=== PATIENT | male | born 1945 | race Two or more races ===

== ENCOUNTER 2018-04-09 12:54 | Emergency (ER) | payer MEDICARE, OTHER ==
[2018-04-09] MEDS ORDERED: NITROGLYCERIN/D5W 50 MG/250 ML RTUINJ IV ONE (13:17)
[2018-04-09] MEDS ORDERED: ONDANSETRON 4 MG TAB.RAPDIS ONE ×2 (13:22→13:43)
[2018-04-09] MEDS ORDERED: ENOXAPARIN SODIUM INJ 100 MG/1 ML DISP.SYRIN SUBCUT ONE (13:25)
[2018-04-09] MEDS ORDERED: TICAGRELOR 90 MG TABLET PO ONE (13:25)
[2018-04-09] MEDS ORDERED: NITROGLYCERIN/D5W 50 MG/250 ML RTUINJ IV PRN (13:26)
--- NOTE | 2018-04-09 13:33 | ER Document Report ---
ED Cardiac - General Chief Complaint: Chest Pain Stated Complaint: CHEST PAIN Time Seen by Provider: 04/09/18 13:23 Mode of Arrival: Ambulatory Information source: Patient Notes: This is a 73-year-old man with a history of gout who presents to the emergency room with left-sided nonradiating chest pain and diaphoresis for 1 hour. Currently, the patient's pain is 5 out of 10. Patient denies any recent bleeding. He denies any abdominal pain. He denies any significant shortness of breath. He states he did have some chest pain 2 days ago but it resolved spontaneously. TRAVEL OUTSIDE OF THE [place] IN LAST 30 DAYS: No - HPI Patient complains to provider of: Chest pain Use of: denies: Alcohol, Amphetamines, Bath salts, Caffeine, Cocaine, Decongestants, Other Is the pain a: New problem Chest pain location: Substernal Quality of pain: Constant, Dull Chest pain radiation location: denies: Left jaw, Left arm, Left shoulder, Right jaw, Right arm, Right shoulder, Back, Neck, None Severity now: Moderate Severity at worst: Severe Pain level currently: 4 Chest pain precipitating factors: At Rest Cardiac risk factors: None Positive cardiac history: No Associated symptoms: Other - Diaphoresis Exacerbated by: Emotional stress Relieved by: Nothing Similar symptoms previously: No Recently seen / treated by doctor: No - Related Data Allergies/Adverse Reactions: No Known Allergies Allergy (Unverified 04/09/18 16:12) Past Medical History - General Information source: Patient - Social History Smoking Status: Never Smoker Cigarette use (# per day): No Chew tobacco use (# tins/day): No Frequency of alcohol use: None Drug Abuse: None Lives with: Spouse/Significant other Family History: None Patient has suicidal ideation: No Patient has homicidal ideation: No - Past Medical History Cardiac Medical History: Reports: None Pulmonary Medical History: Reports: None EENT Medical History: Reports: None Neurological Medical History: Reports: None Endocrine Medical History: Reports: None Renal/ Medical History: Reports: None Malignancy Medical History: Reports None GI Medical History: Reports: None Musculoskeltal Medical History: Reports Hx Gout Skin Medical History: Reports None Psychiatric Medical History: Reports: None Traumatic Medical History: Reports: None Infectious Medical History: Reports: None Surgical Hx: Negative Review of Systems - Review of Systems Constitutional: denies: Chills, Fever EENT: No symptoms reported Cardiovascular: See HPI Respiratory: No symptoms reported Gastrointestinal: No symptoms reported Genitourinary: No symptoms reported Male Genitourinary: No symptoms reported Musculoskeletal: No symptoms reported Skin: No symptoms reported Hematologic/Lymphatic: No symptoms reported Neurological/Psychological: No symptoms reported Physical Exam - Vital signs Vitals: Pulse Resp BP Pulse Ox 112 H 18 83/63 L 99 04/09/18 12:55 04/09/18 12:55 04/09/18 12:55 04/09/18 12:55 Notes: Physical exam: GENERAL: Diaphoretic, pale appearing male complaining of 5/10 chest pain HEAD: Atraumatic, normocephalic. EYES: Pupils equal round and reactive to light, extraocular movements intact, sclera anicteric, conjunctiva are normal. ENT: TMs normal, nares patent, oropharynx clear without exudates. Moist mucous membranes. NECK: Normal range of motion, supple without obvious mass or JVD. LUNGS: Breath sounds clear to auscultation bilaterally and equal. No wheezes rales or rhonchi. HEART: Regular rate and rhythm without murmurs, rubs or gallops. ABDOMEN: Soft, normoactive bowel sounds. No tenderness to palpation. No guarding, no rebound. No masses appreciated. EXTREMITIES: Normal range of motion, no pitting or edema. No clubbing or cyanosis. NEUROLOGICAL: Cranial nerves II through XII grossly intact. Normal speech, moving all extremities. PSYCH: Normal mood, normal affect. SKIN: Warm, Dry, normal turgor, no rashes or lesions noted. Course - Re-evaluation Re-evalutation: 04/09/18 13:31 Patient took 81 mg of aspirin this morning. He was given 381 mg of aspirin in the ER. Patient was given Lovenox 30 mg IV, followed by 100 mg subcu is part of protocol. Patient was given Plavix. Discussed JANETH Day with patient and asked me to speak to the government contracts manager at [facility] (they are already environmental projects advisor). Discussed case with Dr. Porter who is a government contracts manager at [facility] is willing to take the patient. He recommended adding Brilinta at 160 mg, and transfer the patient and to hold on T and K. Helicopter is already on the way and is said to be here in 10 minutes. Patient is receiving IV nitroglycerin (low dose) for his chest pain as well as IV fluids. Given EKG, RCA is likely so will watch his blood pressure closely. 04/09/18 13:36 Note: Patient's blood pressure is 134/80. He states he feels much better. His heart rate is 54 (holding beta-blockers obviously). He states his pain is now a 0. - Vital Signs Vital signs: Temp Pulse Resp BP Pulse Ox 112 H 13 133/88 H 100 04/09/18 12:55 04/09/18 13:51 04/09/18 13:51 04/09/18 13:51 - Diagnostic Test Radiology reviewed: Image reviewed, Reports reviewed - X-ray shows no infiltrates - EKG Interpretation by Me Rate: Normal, Bradycardia Rhythm: NSR - EKG shows sinus rhythm with a ventricular rate of 53, ST elevations 2 mm in 3-1/[address] depressions in 1, L, V1, V2 Critical Care Note - Critical Care Note Total time excluding time spent on procedures (mins): 45 Discharge - Discharge Clinical Impression: Acute NM Condition: Serious Disposition: [facility] Referrals: BULMARO BOLAND MD [Primary Care Provider] - Follow up as needed
--- NOTE | 2018-04-09 13:44 | RADIOLOGY REPORT (SQ) ---
EXAM DESCRIPTION: CHEST SINGLE VIEW COMPLETED DATE/TIME: 04/09/2018 1:22 pm REASON FOR STUDY: CP COMPARISON: None. EXAM PARAMETERS: NUMBER OF VIEWS: One view. TECHNIQUE: Single frontal radiographic view of the chest acquired. RADIATION DOSE: NA LIMITATIONS: None. FINDINGS: LUNGS AND PLEURA: No opacities, masses or pneumothorax. No pleural effusion. MEDIASTINUM AND HILAR STRUCTURES: No masses. Contour normal. HEART AND VASCULAR STRUCTURES: Heart normal in size. Normal vasculature. BONES: No acute findings. HARDWARE: None in the chest. OTHER: No other significant finding. IMPRESSION: NO ACUTE RADIOGRAPHIC FINDING IN THE CHEST. TECHNICAL DOCUMENTATION: JOB ID: [id number] [employer]- All Rights Reserved Reading location - IP/workstation name: [email or web address]
[2018-04-09] MEDS ORDERED: FENTANYL CITRATE INJ/PF 100 MCG/2 ML AMPUL IV ONE (13:45)
[2018-04-09] MEDS ORDERED: ASPIRIN 81 MG TABLET, CHEWABLE ONE (14:31)
[2018-04-09] MEDS ORDERED: CLOPIDOGREL BISULFATE 300 MG TABLET ONE (14:31)
[2018-04-09] MEDS ORDERED: ENOXAPARIN SODIUM INJ 30 MG/0.3 ML DISP.SYRIN ONE (14:31)
[2018-04-09 14:37] VITALS: BP 133/88
--- NOTE | 2018-04-09 22:44 | EKG REPORT ---
SEVERITY:- ABNORMAL ECG - SINUS RHYTHM INFERIOR INJURY, PROBABLE EARLY ACUTE INFARCT CONSIDER POSTERIOR WALL INVOLVEMENT : Confirmed by: Davis Sepulveda 09-Apr-2018 22:44:21
--- NOTE | 2018-04-09 22:46 | EKG REPORT ---
SEVERITY:- ABNORMAL ECG - SINUS RHYTHM INFERIOR INJURY, PROBABLE EARLY ACUTE INFARCT CONSIDER POSTERIOR WALL INVOLVEMENT : Confirmed by: Davis Sepulveda 09-Apr-2018 22:44:52
--- NOTE | 2018-04-09 22:46 | EKG REPORT ---
SEVERITY:- ABNORMAL ECG - SINUS RHYTHM INFERIOR INJURY, PROBABLE EARLY ACUTE INFARCT CONSIDER POSTERIOR WALL INVOLVEMENT : Confirmed by: Davis Sepulveda 09-Apr-2018 22:44:37
== END 2018-04-09 14:00 | disposition short-term general hospital (02) ==
LOC: ER 12:54
DX: I21.9 Acute myocardial infarction, unspecified (principal); R07.9 Chest pain, unspecified; R61 Generalized hyperhidrosis
CPT/HCPCS: 93005; 99285; 71045; 93010; A9270 ×2; J1650; J3490

== ENCOUNTER 2018-04-20 11:56 | Emergency (ER) | payer MEDICARE ==
[2018-04-20 12:28] LABS: ABSOLUTE EOSINOPHILS # (AUTO) 0.1 10^3/uL (0.0-0.6); ABSOLUTE LYMPHOCYTES (AUTO) 2.4 10^3/uL (0.5-4.7); ABSOLUTE MONOCYTES (AUTO) 0.6 10^3/uL (0.1-1.4); ABSOLUTE NEUT (AUTO) 4.3 10^3/uL (1.7-8.2); BASOPHILS % (AUTO) 0.2 % (0-2); EOSINOPHILS % (AUTO) 1.3 % (0-6); HEMATOCRIT 43.1 % (37.9-51.0); HEMOGLOBIN 15.4 g/dL (13.5-17.0); LYMPHOCYTES % (AUTO) 32.3 % (13-45); MEAN CORPUSCULAR HEMOGLOBIN 31.8 pg (27.0-33.4); MEAN CORPUSCULAR HGB CONC 35.7 g/dL (32.0-36.0); MEAN CORPUSCULAR VOLUME 89 fl (80-97); MONOCYTES % (AUTO) 8.6 % (3-13); PLATELET COUNT 218 10^3/uL (150-450); RED BLOOD COUNT 4.83 10^6/uL (4.35-5.55); RED CELL DISTRIBUTION WIDTH 13.9 % (11.5-14.0); SEGMENTED NEUTROPHILS % (AUTO) 57.6 % (42-78); TOTAL CELLS COUNTED % (AUTO) 100 %; WHITE BLOOD COUNT 7.4 10^3/uL (4.0-10.5)
[2018-04-20 12:46] LABS: ALANINE AMINOTRANSFERASE 22 U/L (21-72); ALBUMIN 4.3 g/dL (3.5-5.0); ALKALINE PHOSPHATASE 59 U/L (38-126); ANION GAP 14 (5-19); ASPARTATE AMINO TRANSFERASE 20 U/L (17-59); BILIRUBIN,DIRECT 0.2 mg/dL (0.0-0.4); BILIRUBIN,TOTAL 1.8 mg/dL (0.2-1.3); BLOOD UREA NITROGEN 13 mg/dL (7-20); CALCIUM 9.6 mg/dL (8.4-10.2); CARBON DIOXIDE 28 mmol/L (22-30); CHLORIDE 101 mmol/L (98-107); CREATINE KINASE 48 U/L (55-170); GLUCOSE 123 mg/dL (75-110); POTASSIUM 3.8 mmol/L (3.6-5.0); SODIUM 142.6 mmol/L (137-145); TOTAL PROTEIN 7.2 g/dL (6.3-8.2)
--- NOTE | 2018-04-20 12:55 | RADIOLOGY REPORT (SQ) ---
EXAM DESCRIPTION: CHEST SINGLE VIEW COMPLETED DATE/TIME: 04/20/2018 12:44 pm REASON FOR STUDY: cp COMPARISON: 04/09/2018 EXAM PARAMETERS: NUMBER OF VIEWS: One view. TECHNIQUE: Single frontal radiographic view of the chest acquired. RADIATION DOSE: NA LIMITATIONS: None. FINDINGS: LUNGS AND PLEURA: No opacities, masses or pneumothorax. No pleural effusion. Minimal atel ectasis at the left base. MEDIASTINUM AND HILAR STRUCTURES: No masses. Contour normal. HEART AND VASCULAR STRUCTURES: Heart normal in size. Normal vasculature. BONES: No acute findings. HARDWARE: None in the chest. OTHER: No other significant finding. IMPRESSION: Minimal atelectasis of the left base. TECHNICAL DOCUMENTATION: JOB ID: [id number] [employer]- All Rights Reserved Reading location - IP/workstation name: [email or web address]
[2018-04-20 12:58] LABS: CREATINE KINASE MB 0.36 ng/mL (<4.55); TROPONIN I 0.03 ng/mL
--- NOTE | 2018-04-20 13:46 | RADIOLOGY REPORT (SQ) ---
EXAM DESCRIPTION: CTA CHEST COMPLETED DATE/TIME: 04/20/2018 1:35 pm REASON FOR STUDY: chest pain recent cath for mi sob COMPARISON: Chest radiograph 04/20/2018 TECHNIQUE: CT scan of the chest performed using helical scanning technique with dynamic intravenous contrast injection. Images reviewed with lung, soft tissue and bone windows. Reconstructed coronal and sagittal MPR images reviewed. Additional 3 dimensional post-processing performed to develop Maximal Intensity Projection images (NC P). All images stored on PACS. All CT scanners at this facility use dose modulation, iterative reconstruction, and/or weight based d osing when appropriate to reduce radiation dose to as low as reasonably achievable (ALARA). [facility]: Dose Right [facility]: CareDose [facility]: Dose Right [facility]: Teradose 4D [facility]: Caterva CONTRAST TYPE AND DOSE: contrast/concentration: Isovue 370.00 mg/ml; Total Contrast Delivered: 80.0 ml; Total Saline Delivered: 80.0 ml Contrast bolus optimized for the pulmonary arteries. Not diagnostic for the aorta. RENAL FUNCTION: GFR > 60. RADIATION DOSE: CT Rad equipment meets quality standard of care and radiation dose reduction techniq ues were employed. CTDIvol: 26.3 - 33.1 mGy. DLP: 2256 mGy-cm. . LIMITATIONS: None. FINDINGS: LUNGS AND PLEURA: No masses, infiltrates, or pneumothorax. No pleural effusions or pleura l calcifications. AORTA AND GREAT VESSELS: No aneurysm. Contrast bolus not optimized for the aorta. HEART: No pericardial effusion. No significant coronary artery calcifications. PULMONARY ARTERIES: No emboli visualized in the main pulmonary arteries or the segmental branches. HILAR AND MEDIASTINAL STRUCTURES: No identified masses or abnormal nodes. HARDWARE: None in the chest. UPPER ABDOMEN: Possible gallstones. THYROID AND OTHER SOFT TISSUES: No masses. No adenopathy. BONES: No acute or significant finding. 3D MIPS: Confirm above findings. OTHER: No other significant finding. IMPRESSION: NORMAL CTA OF THE CHEST. NO PULMONARY EMBOLI. Possible gallstones. COMMENT: Quality ID # [id number]: Final reports with documentation of one or more dose reduction techniques (e.g., Automated exposure control, adjustment of the mA and/or kV according to patient size, use of iterative reconstruction technique) TECHNICAL DOCUMENTATION: JOB ID: [id number] [employer]- All Rights Reserved Reading location - IP/workstation name: [email or web address]
[2018-04-20] MEDS ORDERED: ISOSORBIDE MONONITRATE 30 MG TAB.ER.24H PO ONE (16:36)
--- NOTE | 2018-04-20 16:38 | ER Document Report ---
ED General - General Chief Complaint: Shortness Of Breath Stated Complaint: CHEST PAIN Time Seen by Provider: 04/20/18 12:17 TRAVEL OUTSIDE OF THE [place] IN LAST 30 DAYS: No - HPI Patient complains to provider of: Chest pain Notes: Patient coming in for evaluation of chest pain dyspnea started earlier this morning. Patient's chest pain dyspnea did relieved with 2 nitro tablets however recently had a cardiac catheterization with stents placed in RCA and LAD after having a STEMI approximately 2 weeks ago. Patient upon my evaluation chest pain-free states no nausea no vomiting. Patient resting comfortably. - Related Data Allergies/Adverse Reactions: No Known Allergies Allergy (Unverified 04/09/18 16:12) Past Medical History - Social History Smoking Status: Never Smoker Frequency of alcohol use: None Drug Abuse: None Family History: None Patient has suicidal ideation: No Patient has homicidal ideation: No - Past Medical History Cardiac Medical History: Reports: Hx Heart Attack - March 2018 Renal/ Medical History: Denies: Hx Peritoneal Dialysis Musculoskeltal Medical History: Reports Hx Gout Past Surgical History: Reports: Hx Cardiac Catheterization - March 2018, Stent placed x2 Review of Systems - Review of Systems Constitutional: No symptoms reported EENT: No symptoms reported Cardiovascular: Chest pain, Dyspnea Respiratory: No symptoms reported Gastrointestinal: No symptoms reported Genitourinary: No symptoms reported Male Genitourinary: No symptoms reported Musculoskeletal: No symptoms reported Skin: No symptoms reported Hematologic/Lymphatic: No symptoms reported Neurological/Psychological: No symptoms reported Physical Exam - Vital signs Vitals: Temp Pulse Resp BP Pulse Ox 98.4 F 98 18 116/69 97 04/20/18 11:56 04/20/18 11:56 04/20/18 11:56 04/20/18 11:56 04/20/18 11:56 Interpretation: Normal - General General appearance: Appears well, Alert - HEENT Head: Normocephalic, Atraumatic Eyes: Normal Pupils: PERRL - Respiratory Respiratory status: No respiratory distress Chest status: Nontender Breath sounds: Normal Chest palpation: Normal - Cardiovascular Rhythm: Regular Heart sounds: Normal auscultation Murmur: No - Abdominal Inspection: Normal Distension: No distension Bowel sounds: Normal Tenderness: Nontender Organomegaly: No organomegaly - Back Back: Normal, Nontender - Extremities General upper extremity: Normal inspection, Nontender, Normal color, Normal ROM , Normal temperature General lower extremity: Normal inspection, Nontender, Normal color, Normal ROM , Normal temperature, Normal weight bearing. No: Lg's sign - Neurological Neuro grossly intact: Yes Cognition: Normal Orientation: AAOx4 [place] Coma Scale Eye Opening: Spontaneous [place] Coma Scale Verbal: Oriented [place] Coma Scale Motor: Obeys Commands [place] Coma Scale Total: 15 Speech: Normal Motor strength normal: LUE, RUE, LLE, RLE Sensory: Normal - Psychological Associated symptoms: Normal affect, Normal mood - Skin Skin Temperature: Warm Skin Moisture: Dry Skin Color: Normal Course - Re-evaluation Re-evalutation: 04/20/18 16:44 EKG does not show any acute pathology along with 2 negative troponins. PCP at bedside visiting more likely has a friend the but this suggest possibly Imdur. I did contact the cardiology team at [facility] taking care of the patient's and does agree with low dose of 30 mg in your daily PE study was also performed showing no signs of PE. Patient remains chest pain-free we will discharge the patient follow-up with his planned giving officer on Sunday. - Vital Signs Vital signs: Temp Pulse Resp BP Pulse Ox 98.4 F 98 17 115/79 99 04/20/18 11:56 04/20/18 11:56 04/20/18 15:00 04/20/18 15:01 04/20/18 15:00 - Laboratory Result Diagrams: 04/20/18 12:10 04/20/18 12:10 Laboratory results interpreted by me: 04/20/18 12:10 Glucose 123 H Total Bilirubin 1.8 H Creatine Kinase 48 L Discharge - Discharge Clinical Impression: Chest pain Qualifiers: Chest pain type: unspecified Qualified Code(s): R07.9 - Chest pain, unspecified Dyspnea Qualifiers: Dyspnea type: unspecified Qualified Code(s): R06.00 - Dyspnea, unspecified Condition: Good Disposition: HOME, SELF-CARE Instructions: Angina Episode ([facility]), Chest Pain of Unclear Cause ([facility]) Additional Instructions: Your chest x-ray EKG laboratory studies not show any signs of heart damage at this time no signs of CHF no signs of pulmonary embolism. I did discuss her case with cardiology and [facility] and they do agree with placing you on a small dose of Imdur daily. I will give the 1 dose here in the ER he did not need to take this tonight he can take tomorrow morning please get the prescription filled follow-up with your appointment as scheduled. Return to ER for any concerns Prescriptions: Isosorbide Mononitrate [Imdur 30 mg Tablet.er] 30 mg PO DAILY #14 tab.er.24h Referrals: BULMARO BOLAND MD [Primary Care Provider] - Follow up as needed
[2018-04-20 16:45] VITALS: BP 107/71
--- NOTE | 2018-04-20 22:59 | EKG REPORT ---
SEVERITY:- ABNORMAL ECG - SINUS RHYTHM INFERIOR INFARCT, AGE INDETERMINATE : Confirmed by: Carolyn Monsalve MD 20-Apr-2018 22:58:31
--- NOTE | 2018-04-20 22:59 | EKG REPORT ---
SEVERITY:- ABNORMAL ECG - SINUS RHYTHM INFERIOR INFARCT, AGE INDETERMINATE : Confirmed by: Carolyn Monsalve MD 20-Apr-2018 22:58:23
== END 2018-04-20 17:04 | disposition home or self-care (01) ==
LOC: ER 11:56
DX: R07.9 Chest pain, unspecified (principal); R06.02 Shortness of breath; Z95.5 Presence of coronary angioplasty implant and graft
CPT/HCPCS: 36415; 71045; 71275; 80053; 82550; 82553; 83880; 84484; 85025; 93005; 93010; 99285

== ENCOUNTER → 2019-04-11 | Outpatient (CLI) | payer MEDICARE, OTHER ==
[2019-04-11 15:38] LABS: ABSOLUTE EOSINOPHILS # (AUTO) 0.1 10^3/uL (0.0-0.6); ABSOLUTE LYMPHOCYTES (AUTO) 2.2 10^3/uL (0.5-4.7); ABSOLUTE MONOCYTES (AUTO) 0.7 10^3/uL (0.1-1.4); ABSOLUTE NEUT (AUTO) 4.3 10^3/uL (1.7-8.2); BASOPHILS % (AUTO) 0.3 % (0-2); EOSINOPHILS % (AUTO) 1.4 % (0-6); HEMATOCRIT 41.7 % (37.9-51.0); HEMOGLOBIN 14.4 g/dL (13.5-17.0); LYMPHOCYTES % (AUTO) 29.8 % (13-45); MEAN CORPUSCULAR HEMOGLOBIN 30.6 pg (27.0-33.4); MEAN CORPUSCULAR HGB CONC 34.6 g/dL (32.0-36.0); MEAN CORPUSCULAR VOLUME 88 fl (80-97); PLATELET COUNT 201 10^3/uL (150-450); RED BLOOD COUNT 4.72 10^6/uL (4.35-5.55); RED CELL DISTRIBUTION WIDTH 14.3 % (11.5-14.0); SEGMENTED NEUTROPHILS % (AUTO) 58.5 % (42-78); TOTAL CELLS COUNTED % (AUTO) 100 %; WHITE BLOOD COUNT 7.4 10^3/uL (4.0-10.5)
== END ==
LOC: OD 14:46
PROVIDERS: ATTEND Internal Medicine
DX: J02.9 Acute pharyngitis, unspecified (principal)
CPT/HCPCS: 36415; 85025; 87070

== ENCOUNTER → 2020-11-02 | Outpatient (CLI) | payer MEDICARE, OTHER ==
[~2020-11-02] MED LIST: COVID-19 VACCINE (PFIZER)/PF 30 MCG/0.3 ML VIAL IM ONE; EPINEPHRINE INJ/PF 1 MG/1 ML AMPULE IM PRN
== END ==
LOC: EMPHEALTH 09:35
PROVIDERS: ATTEND Internal Medicine
DX: Z23 Encounter for immunization (principal)
CPT/HCPCS: 91300